=== PATIENT | female | born 1940 | race Caucasian/White ===

== ENCOUNTER → 2017-01-01 | Outpatient (CLI) | payer OTHER ==
[~2017-01-01] MED LIST: ACCUNEB0.63 MG/3 INH; ADVAIR 250-501 EACH INH; ALBUTEROL2.5 MG/31 INH; ALKA-SELTZER H1 EACH PO; ASPIRIN EC81 M1 PO; ATORVASTATIN CA40 MG PO; BENADRYL25 MG PO; CARDIZEM CD120 MG PO; CEPACOL SORE T1 EAC2; COMBIVENT INH; COZAAR100 MG PO; FLONASE16 GM NASAL; LEVAQUIN 500 M500 M2 PO; LOPRESSOR25 PO; METOPROLOL SUCC25 M1 PO; MUCINEX TA600 MG/TA1 PO; NASONEX17 GM NASAL; NORCO 5-325 TA1 EACH PO; PREDNISONE 10 M10 MG; PREDNISONE 5 MG5 M1 PO; PULMICORT0.5 MG/2 M INH; ROBAXIN 750 MG750 M1 PO; ROBITUSSIN COU237 ML PO; SINGULAIR 10 MG10 M1 PO; TOPROL XL25 MG; TRAMADOL 50 MG50 MG PO
== END ==
LOC: PUL 08:19
DX: J44.9 Chronic obstructive pulmonary disease, unspecified (principal); R06.02 Shortness of breath